=== PATIENT | female | born 1960 | race Caucasian/White ===

== ENCOUNTER 2016-07-21 16:56 | Emergency (ER) | payer BC, OTHER ==
[2016-07-21] MEDS ORDERED: Ibuprofen TAB* 600 MG PO ONE (18:53)
--- NOTE | 2016-07-21 19:04 | UC ---
Throat Pain/Nasal Mike HPI - HPI Summary HPI Summary: Bad ST, dry cough, and feeling feverish since yesterday. Does not live or work with children or teens. Denies shaking chills or SOB/wheezing. Has had albuterol rx in past for URIs, still has one at home that has medication in it. - History of Current Complaint Chief Complaint: UCGeneralIllness Stated Complaint: SORE THROAT Time Seen by Provider: 07/21/16 18:49 Hx Obtained From: Patient Hx Last Menstrual Period: 05/2016 ?: No Onset/Duration: Gradual Onset, Lasting Days Severity: Moderate Cough: Nonproductive Associated Signs & Symptoms: Negative: Nasal Discharge, Vomiting, Rash - Allergies/Home Medications Allergies/Adverse Reactions: Allergies Allergy/AdvReac Type Severity Reaction Status Date / Time Erythromycin Allergy Intermediate DIZZY Verified 03/11/15 11:53 PMH/Surg Hx/FS Hx/Imm Hx Previously Healthy: Yes - Surgical History Surgical History: Yes Surgery Procedure, Year, and Place: TUBAL LIGATION - Family History Known Family History: Positive: Hypertension - Social History Lives: With Family Alcohol Use: Rare Substance Use Type: None Smoking Status (MU): Never Smoked Tobacco Review of Systems Constitutional: Fatigue Skin: Negative Eyes: Negative ENT: Sore Throat Respiratory: Cough Cardiovascular: Negative Gastrointestinal: Negative Genitourinary: Negative Motor: Negative Neurovascular: Negative Musculoskeletal: Negative Neurological: Negative Psychological: Negative All Other Systems Reviewed And Are Negative: Yes Physical Exam Triage Information Reviewed: Yes Appearance: Well-Appearing, No Pain Distress, Well-Nourished Vital Signs: Initial Vital Signs Temp 98.7 F 07/21/16 18:07 Pulse 75 07/21/16 18:07 Resp 16 07/21/16 18:07 BP 132/63 07/21/16 18:07 Pulse Ox 100 07/21/16 18:07 Vital Signs Reviewed: Yes Eye Exam: Normal Eyes: Positive: Conjunctiva Clear ENT: Positive: Hearing grossly normal, Pharyngeal erythema - mild, TMs normal. Negative: Nasal congestion, Tonsillar swelling, Tonsillar exudate Dental Exam: Other - dentures Neck exam: Normal Neck: Positive: Supple, Nontender, No Lymphadenopathy Respiratory Exam: Other - freq dry cough Respiratory: Positive: Chest non-tender, Lungs clear, Normal breath sounds, No respiratory distress, No accessory muscle use Cardiovascular Exam: Normal Cardiovascular: Positive: RRR, No Murmur Musculoskeletal Exam: Normal Neurological Exam: Normal Psychological Exam: Normal Skin Exam: Normal Throat Pain/Nasal Course/Dx - Differential Dx/Diagnosis Provider Diagnoses: viral syndrome Discharge - Discharge Plan Condition: Stable Disposition: HOME Patient Education Materials: Viral Syndrome (ED)
[2016-07-21 19:23] VITALS: BP 128/60
== END 2016-07-21 19:28 | disposition home or self-care (01) ==
LOC: UCCORT 16:56
DX: B34.9 Viral infection, unspecified (principal); Z88.1 Allergy status to other antibiotic agents
CPT/HCPCS: 87651; 99212; A9270-GY; G0463

== ENCOUNTER 2017-07-21 08:23 | Emergency (ER) | payer BC ==
--- NOTE | 2017-07-21 09:01 | UC ---
Respiratory Complaint HPI - HPI Summary HPI Summary: cough x 2 days + nasal congestion , pnd , sore throat, + chills, sob and wheezing - History of Current Complaint Chief Complaint: UCRespiratory Stated Complaint: CHEST CONGESTION/ST Time Seen by Provider: 07/21/17 08:30 Hx Obtained From: Patient Hx Last Menstrual Period: 9 MONTHS AGO Onset/Duration: Gradual Onset, Lasting Days - 2, Still Present Timing: Constant Severity Initially: Moderate Severity Currently: Moderate Pain Intensity: 4 Character: Cough: Nonproductive Aggravating Factors: Exertion, Deep Breaths Alleviating Factors: Nothing Associated Signs And Symptoms: Positive: Chills, Wheezing, URI, Nasal Congestion. Negative: Fever, Hemoptysis, Dizziness, Calf Pain, Calf Swelling - Allergies/Home Medications Allergies/Adverse Reactions: Allergies Allergy/AdvReac Type Severity Reaction Status Date / Time erythromycin base Allergy Dizziness Verified 07/21/17 08:42 Home Medications: Home Medications Tyree Back And Body 2 tab PO ONCE PRN 07/21/17 [History Confirmed 07/21/17] Ibuprofen TAB* [Motrin TAB* 400 MG] 400 mg PO ONCE PRN 07/21/17 [History Confirmed 07/21/17] PMH/Surg Hx/FS Hx/Imm Hx Respiratory History: Asthma - Surgical History Surgical History: Yes Surgery Procedure, Year, and Place: TUBAL LIGATION - Family History Known Family History: Positive: Hypertension - Social History Alcohol Use: Rare Substance Use Type: None Smoking Status (MU): Light Every Day Tobacco Smoker Type: Cigarettes Amount Used/How Often: 1/2 PPD Household Exposure Type: Cigarettes Review of Systems Constitutional: Chills, Fatigue Skin: Negative Eyes: Negative ENT: Nasal Discharge Respiratory: Shortness Of Breath, Cough Cardiovascular: Negative Is Patient Immunocompromised?: No All Other Systems Reviewed And Are Negative: Yes Physical Exam Triage Information Reviewed: Yes Appearance: Well-Appearing, No Pain Distress, Well-Nourished Vital Signs: Initial Vital Signs Temp 97.0 F 07/21/17 08:37 Pulse 109 07/21/17 08:37 Resp 36 07/21/17 08:37 BP 161/85 07/21/17 08:37 Pulse Ox 97 07/21/17 08:37 Vital Signs Reviewed: Yes Eyes: Positive: Conjunctiva Clear ENT: Positive: Normal ENT inspection, Hearing grossly normal, Pharyngeal erythema, Nasal congestion Neck: Positive: Supple, Nontender, No Lymphadenopathy Respiratory: Positive: Chest non-tender, Respiratory distress, Wheezing Cardiovascular: Positive: No Murmur, Tachycardia Abdominal Exam: Normal Skin Exam: Normal UC Diagnostic Evaluation - Laboratory O2 Sat by Pulse Oximetry: 98 Respiratory Course/Dx - Differential Dx/Diagnosis Provider Diagnoses: Bronchitis Discharge - Discharge Plan Condition: Stable Disposition: HOME Prescriptions: Benzonatate CAP* [Tessalon 100 MG CAP*] 100 mg PO TID PRN #21 cap PRN Reason: Cough DOXYcycline CAP(*) [DOXYcycline 100MG CAP(*)] 100 mg PO BID #20 cap Patient Education Materials: Acute Bronchitis (ED) Forms: *Work Release Referrals: Tammy Benjamin MD [Primary Care Provider] - 7 Days
[2017-07-21 09:09] VITALS: BP 119/72
== END 2017-07-21 09:12 | disposition home or self-care (01) ==
LOC: UCCORT 08:23
DX: J40 Bronchitis, not specified as acute or chronic (principal); F17.210 Nicotine dependence, cigarettes, uncomplicated; J45.909 Unspecified asthma, uncomplicated
CPT/HCPCS: 99212; G0463

== ENCOUNTER 2017-10-01 11:56 | Emergency (ER) | payer BC ==
[2017-10-01 12:16] VITALS: BP 126/75
--- NOTE | 2017-10-01 12:29 | UC ---
Skin Complaint HPI - HPI Summary HPI Summary: Pt presents with c/o erythema, swelling and tenderness left dorsal aspect of foot. Pt states that she was in [place] over the weekend and got sunburn on ahd blisters develop 2 days after sunburn. - History of Current Complaint Chief Complaint: UCLowerExtremity Time Seen by Provider: 10/01/17 12:16 Stated Complaint: LEFT FOOT COMPLAINT Hx Obtained From: Patient Hx Last Menstrual Period: 9 MONTHS AGO ?: No Onset/Duration: Gradual Onset, Lasting Days, Lasting Weeks, Worse Since - onset Skin Exposure Onset/Duration: Hours Ago Timing: Constant Onset Severity: Mild Current Severity: Moderate Pain Intensity: 10 Location: Discrete Character: Swelling, Redness, Raised, Painful Aggravating Factor(s): Touch Alleviating Factor(s): Cold Associated Signs & Symptoms: Positive: Tenderness - Allergy/Home Medications Allergies/Adverse Reactions: Allergies Allergy/AdvReac Type Severity Reaction Status Date / Time erythromycin base Allergy Dizziness Verified 07/21/17 08:42 Review of Systems Constitutional: Negative Skin: Other - sunburn, swelling, tenderness Eyes: Negative ENT: Negative Respiratory: Negative Cardiovascular: Negative Gastrointestinal: Negative Genitourinary: Negative Motor: Negative Neurovascular: Negative Musculoskeletal: Myalgia Neurological: Negative Psychological: Negative Is Patient Immunocompromised?: No All Other Systems Reviewed And Are Negative: Yes PMH/Surg Hx/FS Hx/Imm Hx Previously Healthy: Yes - Surgical History Surgical History: Yes Surgery Procedure, Year, and Place: TUBAL LIGATION. HYSTERECTOMY - Family History Known Family History: Positive: Hypertension - Social History Occupation: Employed Full-time Lives: With Family Alcohol Use: Rare Substance Use Type: None Smoking Status (MU): Light Every Day Tobacco Smoker Type: Cigarettes Amount Used/How Often: 1/2 PPD Have You Smoked in the Last Year: No When Did the Patient Quit Smoking/Using Tobacco: >35 YEARS AGO Household Exposure Type: Cigarettes Physical Exam Triage Information Reviewed: Yes Appearance: Pain Distress Vital Signs: Initial Vital Signs Temp 98.0 F 10/01/17 12:09 Pulse 78 10/01/17 12:09 Resp 17 10/01/17 12:09 BP 126/75 10/01/17 12:09 Pulse Ox 100 10/01/17 12:09 Vital Signs Reviewed: Yes Eye Exam: Normal ENT: Positive: Hearing grossly normal Respiratory: Positive: No respiratory distress Musculoskeletal: Positive: Edema @ - left foot Neurological Exam: Normal Psychological Exam: Normal Skin Exam: Other - dorsal aspect of left foot, erythematous, mild swelling and tenderness Course/Dx - Differential Diagnoses - Skin Complaint Differential Diagnoses: Cellulitis - Diagnoses Provider Diagnoses: cellulitis. sunburn Discharge - Sign-Out/Discharge Documenting (check all that apply): Discharge/Admit/Transfer - Discharge Plan Condition: Stable Disposition: HOME Prescriptions: Cephalexin CAP* [Keflex 500 CAP*] 500 mg PO Q12H #20 cap Patient Education Materials: Cellulitis (ED), Sunburn (ED) Referrals: Tammy Benjamin MD [Primary Care Provider] - If Needed - Billing Disposition and Condition Condition: STABLE Disposition: HOME
== END 2017-10-01 12:40 | disposition home or self-care (01) ==
LOC: UCCORT 11:56
DX: L03.116 Cellulitis of left lower limb (principal); L55.9 Sunburn, unspecified; Z88.1 Allergy status to other antibiotic agents
CPT/HCPCS: 99212; G0463

== ENCOUNTER 2018-08-08 10:31 | Emergency (ER) | payer BC ==
[2018-08-08 11:04] VITALS: BP 131/78
--- NOTE | 2018-08-08 12:16 | UC ---
Elbow Pain - HPI Summary HPI Summary: No known injury. Left elbow pain over the past 2 weeks. She states today was the first she could get it looked at. 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 She states she cannot take time off. - History of Current Complaint Chief Complaint: UCUpperExtremity Stated Complaint: LEFT ELBOW/UPPER ARM PAIN Time Seen by Provider: 08/08/18 12:15 Hx Obtained From: Patient Hx Last Menstrual Period: 9 MONTHS AGO ?: No Onset/Duration: Weeks - 2 weeks ago Severity Initially: Mild Severity Currently: Mild Pain Intensity: 7 Character: Aching Aggravating Factor(s): Movement Alleviating Factor(s): Rest Associated Signs And Symptoms: Positive: Negative. Negative: Swelling, Redness , Bruising, Fever, Weakness, Numbness/Tingling - Allergies/Home Medications Allergies/Adverse Reactions: Allergies Allergy/AdvReac Type Severity Reaction Status Date / Time erythromycin base Allergy Dizziness Verified 08/08/18 11:02 Home Medications: Home Medications NK [No Home Medications Reported] 08/08/18 [History Confirmed 08/08/18] PMH/Surg Hx/FS Hx/Imm Hx Previously Healthy: Yes - Surgical History Surgical History: Yes Surgery Procedure, Year, and Place: TUBAL LIGATION. HYSTERECTOMY. colonoscopy 07/23 - Family History Known Family History: Positive: Hypertension - Social History Occupation: Employed Full-time - Works at a local factory Alcohol Use: None Substance Use Type: None Smoking Status (MU): Former Smoker Type: Cigarettes Amount Used/How Often: 1/2 PPD Have You Smoked in the Last Year: No When Did the Patient Quit Smoking/Using Tobacco: >35 YEARS AGO Household Exposure Type: Cigarettes Review of Systems All Other Systems Reviewed And Are Negative: Yes Constitutional: Positive: Negative Skin: Positive: Negative Eyes: Positive: Negative ENT: Positive: Negative Respiratory: Positive: Negative Cardiovascular: Positive: Negative Gastrointestinal: Positive: Negative Genitourinary: Positive: Negative Motor: Positive: Negative Neurovascular: Positive: Negative Musculoskeletal: Positive: Other: - Pain left elbow with some movements including lifting and twisting. Neurological: Positive: Negative Psychological: Positive: Negative Is Patient Immunocompromised?: No Physical Exam Triage Information Reviewed: Yes Appearance: Well-Appearing, No Pain Distress, Well-Nourished Vital Signs: Initial Vital Signs Temp 97.7 F 08/08/18 11:01 Pulse 78 08/08/18 11:01 Resp 15 08/08/18 11:01 BP 131/78 08/08/18 11:01 Pulse Ox 100 08/08/18 11:01 Vital Signs Reviewed: Yes Musculoskeletal Exam: Normal Musculoskeletal: Positive: Strength Intact, ROM Intact, No Edema, Other: - No erythema, good periph pulses, neurosensation, cap refill. Neurological Exam: Normal Neurological: Positive: Alert, Muscle Tone Normal Psychological Exam: Normal Skin Exam: Normal - No evidence of infection. Elbow Pain Course/Dx - Course Course Of Treatment: Comfortable here, I believe this is a tendonitis from her work - Differential Dx/Diagnosis Differential Diagnosis/HQI/PQRI: Tendonitis Provider Diagnosis: Left elbow tendonitis Discharge - Sign-Out/Discharge Documenting (check all that apply): Patient Departure All imaging exams completed and their final reports reviewed: No Studies - Discharge Plan Condition: Good Disposition: HOME Patient Education Materials: Tendinitis (ED) Referrals: Tammy Benjamin MD [Primary Care Provider] - Additional Instructions: Apply moist heat to the sore area as many times a day as possible. Avoid movements that cause pain. Limit lifting with your left ar. Take ibuprofen 600mg every 6-8 hours for pain. Definite follow up with the Orthopedist in 4-5 days if no improvement. - Billing Disposition and Condition Condition: GOOD Disposition: Home - Attestation Statements Provider Attestation: Per institutional requirements, I have reviewed the chart, however, I was not consulted specifically or made aware of this patient by the midlevel provider. I did not personally evaluate, interact with , or disposition this patient.
== END 2018-08-08 12:28 | disposition home or self-care (01) ==
LOC: UCCORT 10:31
DX: M77.9 Enthesopathy, unspecified (principal); Z88.1 Allergy status to other antibiotic agents; Z87.891 Personal history of nicotine dependence
CPT/HCPCS: 99212; G0463